=== PATIENT | female | born 1955 | race Caucasian/White ===

== ENCOUNTER → 2021-11-16 | Day surgery (SDC) | payer OTHER ==
[~2021-11-16] VITALS: Ht 162.6 cm; Wt 54.4 kg
[2021-11-16 08:45] LABS: ALBUMIN 4.5 g/dL (3.4-5.0); BILIRUBIN - TOTAL 0.8 mg/dL (0.2-1.0); BUN/CREAT RATIO (CALC) 18.1 RATIO; CREATININE 0.72 mg/dL (0.51-0.95); GLOBULIN (CALCULATION) 3.5 g/dL; POTASSIUM 3.8 mmol/L (3.5-5.1)
[2021-11-16 09:00] LABS: HCT 47.4 % (37.0-47.0); HGB 15.6 g/dl (12.5-16.0); MCH 30.5 pg (25.0-31.0); MCHC 32.9 g/dL (32.0-36.0); MCV 92.6 fL (78.0-100.0); MPV 10.9 fL (6.0-9.5); RBC 5.12 M/uL (4.20-5.40); RDW 13.1 % (11.5-14.0); WBC 10.2 K/uL (4.0-10.5)
== END | disposition home or self-care (01) ==
LOC: FAS 07:52
PROVIDERS: Surgery
DX: Z12.11 Encounter for screening for malignant neoplasm of colon (principal); D12.3 Benign neoplasm of transverse colon; Z80.0 Family history of malignant neoplasm of digestive organs; F17.210 Nicotine dependence, cigarettes, uncomplicated
CPT/HCPCS: 36415; 80053; J1610; J2250; J2704; J7120